=== PATIENT | male | born 1985 | race African-American/Black ===

== ENCOUNTER 2025-06-23 19:08 | Emergency (ER) | payer BC ==
[~2025-06-23] VITALS: Ht 165.1 cm; Wt 110.2 kg
[2025-06-23 19:35] VITALS: PULSE 104; RESP 18; TEMP 99.4
[2025-06-23] MEDS: SODIUM CHLORIDE 0.9% 1000ML 1,000 ML IV STA (20:16)
[2025-06-23] MEDS ORDERED: DOXYCYCLINE HY100 MG PO (21:07)
[2025-06-23] MEDS ORDERED: IBUPROFEN600 MG PO (21:07)
[2025-06-23 21:30] VITALS: BP 165/95; PULSE 96; RESP 18; TEMP 99; O2SAT 96
== END 2025-06-23 21:30 | disposition home or self-care (01) ==
LOC: FSED 19:22
DX: R31.9 Hematuria, unspecified (principal); I10 Essential (primary) hypertension; E11.65 Type 2 diabetes mellitus with hyperglycemia
CPT/HCPCS: 74176; 80053; 81003; 85025; 99284; J7030